=== PATIENT | female | born 1950 | race Caucasian/White ===

== ENCOUNTER 2018-06-26 16:01 | Emergency (ER) | payer MEDICARE, OTHER ==
[~2018-06-26] VITALS: Ht 160 cm; Wt 90.0 kg
[2018-06-26 16:28] LABS: BASO % 0.2 % (0.0-2.0); GRAN # 18.5 (1.4-6.5); GRAN % 90.5 % (42.2-75.2); HEMATOCRIT 43.3 % (37.0-47.0); HEMOGLOBIN 14.6 g/dl (12.5-16.0); LYMPH # 0.6 (1.2-3.4); LYMPH % 2.7 % (20.0-51.0); MEAN CELL VOLUME 92 fl (80.0-100.0); MEAN CORPUSCULAR HEMOGLOBIN 31 pg (27.0-31.0); MEAN CORPUSCULAR HGB CONC 34 g/dl (33.0-37.0); MEAN PLATELET VOLUME 9.6 fl (7.4-10.4); MONO # 1.2 (0.1-0.6); MONO % 5.9 % (1.7-9.3); PLATELET COUNT 257 K/mm3 (130-400); RED BLOOD COUNT 4.71 M/mm3 (4.10-5.30)
[2018-06-26 16:37] LABS: INR 1.3 (0.8-3.0); PROTHROMBIN TIME 14.5 SECONDS (9.7-12.8)
[2018-06-26 20:34] LABS: HEMATOCRIT 45.6 % (37.0-47.0); HEMOGLOBIN 15.2 g/dl (12.5-16.0); MEAN CELL VOLUME 92 fl (80.0-100.0); MEAN CORPUSCULAR HEMOGLOBIN 31 pg (27.0-31.0); MEAN CORPUSCULAR HGB CONC 33 g/dl (33.0-37.0); MEAN PLATELET VOLUME 9.5 fl (7.4-10.4); PLATELET COUNT 296 K/mm3 (130-400); RED BLOOD COUNT 4.96 M/mm3 (4.10-5.30); REDCELL DISTRIBUTION WIDTH-CV 13.2 % (11.5-14.5)
[2018-06-26 20:41] LABS: BILIRUBIN,TOTAL 0.6 mg/dL (0.0-1.0); CALCIUM 9.4 mg/dL (8.4-10.2); CREATININE, serum 0.82 mg/dL (0.52-1.25); POTASSIUM 3.1 mmol/L (3.4-5.0); TOTAL PROTEIN 8.9 gm/dL (6.4-8.2)
[2018-06-26 20:58] LABS: COLLECTION METHOD CATHETER
[2018-06-26 20:59] LABS: ANISOCYTOSIS 1+; BAND 9 % (0-10); LYMPHOCYTE 3 % (20.0-51.0); NEUTROPHILS 84 % (42.0-75.2); PLATELET ESTIMATE NORMAL (NORMAL)
[2018-06-26 21:06] LABS: PH 7 (5-8); SQUAMOUS EPITHELIAL None Seen /hpf; URINE APPEARANCE Hazy; URINE BACTERIA Rare /hpf; URINE BILIRUBIN Negative (NEGATIVE); URINE BLOOD 3+ (NEGATIVE); URINE COLOR Yellow; URINE GLUCOSE 3+ (NEGATIVE); URINE KETONE 1+ (NEGATIVE); URINE LEUKOCYTE ESTERASE Negative (NEGATIVE); URINE NITRATE Negative (NEGATIVE); URINE PROTEIN(semi-quant) 1+ (NEGATIVE); URINE RBC >50 /hpf; URINE UROBILINOGEN Negative (NEGATIVE)
[2018-06-26 21:12] LABS: ARTERIAL BLD GAS O2 SATURATION 96.1 % (92-100); ARTERIAL BLD GAS TCO2 CT 27.8; ARTERIAL BLOOD GAS BASE EXCESS 2.5 (-2-2); ARTERIAL BLOOD GAS HCO3 26.6 meq/L (22-26); ARTERIAL BLOOD GAS PCO2 39.2 mmHg (35-45); ARTERIAL BLOOD GAS PO2 79.4 mmHg (80-100); ARTERIAL BLOOD GAS pH 7.45 (7.35-7.45)
[2018-06-27] MEDS ORDERED: ROXICODONE 55 MG/TAB PO (07:10)
[2018-06-27] MEDS ORDERED: TAMBOCOR150 MG PO (07:10)
[2018-06-27] MEDS ORDERED: COUMADIN 77.5 MG/TAB PO (07:11)
[2018-06-27] MEDS ORDERED: SYNTHROID0.112 MG/T PO (07:11)
[2018-06-27] MEDS ORDERED: CYTOMEL 2525 MCG/TAB PO (07:12)
[2018-06-27] MEDS ORDERED: NEURONTIN300 MG/CAP PO (07:12)
[2018-06-27] MEDS ORDERED: MAXZIDE-25MG TA1 TAB PO (07:12)
[2018-06-27] MEDS ORDERED: LOFIBRA160 MG PO (07:12)
[2018-06-27] MEDS ORDERED: CYMBALTA 60MG60 MG PO (07:13)
[2018-06-27] MEDS ORDERED: TOPROL XL 25MG25 MG PO (07:13)
[2018-06-27] MEDS ORDERED: CRESTOR20 MG PO (07:13)
[2018-06-27 08:00] VITALS: BP 142/71; PULSE 72
[2018-06-27 08:26] VITALS: TEMP 98
== END 2018-06-27 08:50 | disposition short-term general hospital (02) ==
LOC: COL.ER 16:01
PROVIDERS: Family Medicine
DX: G97.1 Other reaction to spinal and lumbar puncture (principal); G89.29 Other chronic pain; M54.5 Low back pain; D72.829 Elevated white blood cell count, unspecified; Z79.01 Long term (current) use of anticoagulants
CPT/HCPCS: J0696; J1170; J2405; J3370; J7030; J7040; J7050; J7120

== ENCOUNTER 2019-10-04 16:05 | Inpatient (IN) | payer MEDICARE, OTHER ==
[~2019-10-04] VITALS: Ht 160 cm; Wt 90.8 kg
[~2019-10-04 16:05] MED LIST: COUMADIN 77.5 MG/TAB PO; CRESTOR20 MG PO; CYMBALTA 60MG60 MG PO; CYTOMEL 2525 MCG/TAB PO; LOFIBRA160 MG PO; MAXZIDE-25MG TA1 TAB PO; NEURONTIN300 MG/CAP PO; ROXICODONE 55 MG/TAB PO; SYNTHROID0.112 MG/T PO; TAMBOCOR150 MG PO; TOPROL XL 25MG25 MG PO
[2019-11-16] VITALS (15 sets, daily range): BP systolic 78–132; BP diastolic 34–52; PULSE 62–74; TEMP 97.4–98.1
--- NOTE | 2019-11-16 08:14 | NUR ---
Patient brought to room from admissions via wheelchair. Assessment completed. Consent reviewed and signed. 20 gauge IV started in left forearm times one stick by this nurse. Spouse in room with the patient.
[2019-11-16] MEDS ORDERED: ACIDOPHILIS (08:49)
[2019-11-16] MEDS ORDERED: LIORESAL 1010 MG/TAB PO (08:50)
[2019-11-16] MEDS ORDERED: KLONOPIN 0.5MG0.5 MG PO (08:51)
[2019-11-16] MEDS ORDERED: DULCOLAX STOOL100 MG PO (08:51)
[2019-11-16] MEDS ORDERED: FENTANYL 25 MCG TD (08:52)
[2019-11-16] MEDS ORDERED: ARIMIDEX1 MG PO (08:53)
[2019-11-16] MEDS ORDERED: FOLIC ACID 40400 MCG PO ×2 (08:54)
[2019-11-16] MEDS ORDERED: LASIX 20MG TABL20 MG PO (08:55)
[2019-11-16] MEDS ORDERED: LUTEIN20 M1 PO (08:56)
[2019-11-16] MEDS ORDERED: TOPROL XL 25MG25 MG PO (08:57)
[2019-11-16] MEDS ORDERED: PROTONIX 40MG T40 MG PO (08:58)
[2019-11-16] MEDS ORDERED: MICRO-K EXTENCA8 MEQ PO (08:59)
[2019-11-16] MEDS ORDERED: PROVENTIL0.09 MG/A1 IH (09:00)
[2019-11-16] MEDS ORDERED: EFFEXOR XR37.5 MG/CA PO (09:02)
[2019-11-16] MEDS ORDERED: MASON NATURAL2000 IU PO (09:03)
[2019-11-16] MEDS ORDERED: VITAMIN C500 MG PO (09:03)
--- NOTE | 2019-11-16 09:56 | NUR ---
ANURADHA met with the patient and her , Uriel ([id number]#[phone]), to discuss discharge plan. The patient lives in [place] with her . She reports independence with ADLs and has a walker, wheelchair, and electric wheelchair. The patient's PCP is Dr. Christopher Gandhi and she receives her medications at [facility] in [place]. She reports no difficulties obtaining her meds. The patient does not have advanced directives in EMR, but she reports that she does have them completed and that her is her DPOA-HC. The patient plans to return home with her and receive outpatient PT in [place]. No additional needs at this time.
[2019-11-16 10:01] LABS: PROTHROMBIN TIME 11.1 SECONDS (9.7-12.8)
--- NOTE | 2019-11-16 13:45 | NUR ---
Patient to room from PACU via bed. Denies pain at this time. Is able to move right leg and foot. Dressing to right knee CDI. Ice is to right knee. Spouse in room with the patient. Patient denies further needs at this time.
--- NOTE | 2019-11-16 15:30 | NUR ---
Sitting up in bed eating pudding. Denies pain. CMS intact to right lower extremity. Spouse in room with patient. Patient denies further needs.
--- NOTE | 2019-11-16 15:36 | NUR ---
Spoke with Dr. North regarding patient BP's low. Orders received.
--- NOTE | 2019-11-16 17:53 | NUR ---
Rating pain in right knee 4/10 and would like pain medication. Ultram administered as prescribed. Patient able to void. Denies further needs at this time.
--- NOTE | 2019-11-16 20:50 | NUR ---
Pt. sitting up in bed at this time. Pt. is A&OX3, assessment complete. IV to Lt. forearm patent, IV fluids infusing per orders. Dressing to rt. knee CDI. Pt. reports pain at a 7 on pain scale, will give pain meds per orders. Pt. denies further needs, call light within reach.
[2019-11-17] VITALS (7 sets, daily range): BP systolic 100–117; BP diastolic 31–85; PULSE 67–77; TEMP 97.1–98.4
--- NOTE | 2019-11-17 06:55 | NUR ---
Lying in bed with eyes closed and CPAP on. Patient opens eyes when name called out. Rating pain 4/10 in right knee. Dressing to right knee CDI. Patient denies needs at this time.
[2019-11-17 07:02] LABS: HEMATOCRIT 30.6 % (37.0-47.0)
[2019-11-17 07:21] LABS: INR 1.1 (0.8-3.0); PROTHROMBIN TIME 12.1 SECONDS (9.7-12.8)
--- NOTE | 2019-11-17 08:34 | NUR ---
Assisted patient into bathroom to void. Returns into room and sits in recliner. Gait slow but steady. Pain does increase some with ambulation. Dressing change was performed to right knee. Site well approximated, no redness/drainage/edema noted at site. Aquacell applied. Patient denies further needs.
--- NOTE | 2019-11-17 10:03 | NUR ---
Rating pain 7/10 in right knee and would like pain medication. Administered Roxicodone as prescribed. Patient remains sitting up in recliner. Denies further needs.
--- NOTE | 2019-11-17 11:54 | NUR ---
First visit from the eyeglass frames inspector. No needs right now.
--- NOTE | 2019-11-17 12:45 | NUR ---
Patient had been up ambulating in halls with PT and working in room with PT. -02/16, describes as a pulled muscle sensation. Administered [place] as prescribed per patient request. Patient lying in bed watching TV and talking with spouse. Denies further needs.
--- NOTE | 2019-11-17 14:52 | NUR ---
Rating pain 10/10 that is cramping down leg, has dull ache above knee. Patient requests pain medication. Administered Roxicodone as prescribed.
--- NOTE | 2019-11-17 16:45 | NUR ---
Continues to have pain in right knee 03/18. Administered [place] as prescribed. Patient's in room. Reassurance provided. Denies further needs.
--- NOTE | 2019-11-17 18:00 | NUR ---
Continues to rate pain 9/10 in right knee. Administer Tramadol as prescribed. Patient in bed. Has ice pack to knee. Spouse remains at bedside.
--- NOTE | 2019-11-17 20:00 | NUR ---
Report received. Assumed care for shift coordinator. A&Ox3-drowsy. Assessment complete. VS stable. Denies nausea/shortness of breath. Left FA INT flushes without difficulty. Aquacell to right knee-CDI. TEDs/SCDs bilat. Fresh ice pack applied to knee. Denies questions/concerns. Call light in reach. Will monitor.
--- NOTE | 2019-11-18 03:07 | NUR ---
Called with c/o pain to right knee-rating 10/10-described as constant throbbing. Oxycodone given per dr order. Fresh ice pack appied. SCDs/Cici chapa. Call light in reach. Will monitor.
[2019-11-18 04:00] VITALS: BP 108/53; PULSE 76; TEMP 97.9
--- NOTE | 2019-11-18 07:02 | NUR ---
REPORT FROM RANJANA BERRY.
[2019-11-18 07:06] LABS: HEMOGLOBIN 10.5 g/dl (12.5-16.0); INR 1.3 (0.8-3.0); PROTHROMBIN TIME 14.3 SECONDS (9.7-12.8)
[2019-11-18 07:10] LABS: HEMATOCRIT 32.7 % (37.0-47.0)
[2019-11-18 07:34] VITALS: BP 129/43; PULSE 73; TEMP 97.8
[2019-11-18 11:31] VITALS: BP 133/52; PULSE 73; TEMP 98.2
[2019-11-18] MEDS ORDERED: NORCO 325 MG-7.1 TAB PO (12:30)
[2019-11-18] MEDS ORDERED: ROXICODONE 55 MG/TAB PO (12:31)
[2019-11-18 17:56] VITALS: BP 108/46; PULSE 70; TEMP 98.4
[2019-11-18 19:58] VITALS: BP 116/56; PULSE 64; TEMP 98.4
--- NOTE | 2019-11-18 20:00 | NUR ---
Report recieved, assumed care for night shift manager. A&Ox3. Assessment complete. VS stable. Denies shortness of breath/nausea. C/O pain to right knee-rating 10/10 on pain scale-described as constant throbbing. Agate given per order. Fresh ice pack applied. Aquacell dressing CDI. TEDs/SCDs bilat. Plan of care discussed for this shift to include pain control/ambulation. Verbalizes understanding/denies concerns. Call light in reach. Will monitor.
[2019-11-19 00:10] VITALS: BP 112/46; PULSE 78; TEMP 98
--- NOTE | 2019-11-19 00:14 | NUR ---
Called with c/o pain to right knee-rating 8/10 on pain scale-described as constant ache/throbbing. Oxycodone per dr order. Ambulating much better this shift prior to last. Cici chapa. Refused SCDs. Fresh ice pack applied to right knee. Call light in reach. Will monitor.
[2019-11-19 04:12] VITALS: BP 116/48; PULSE 68; TEMP 97.8
[2019-11-19 07:38] VITALS: BP 106/59; PULSE 85; TEMP 98.2
[2019-11-19 07:45] LABS: INR 1.6 (0.8-3.0); PROTHROMBIN TIME 18.3 SECONDS (9.7-12.8)
--- NOTE | 2019-11-19 08:00 | NUR ---
PATIENT IS A&O. VSS. RATES PAIN IN RLE AT 4-5 ON PAIN SCALE. GAVE PRN OXYCODONE, TWO TABS WITH AM MEDS. RTK DRESSING IS CD&I WITH AQUACEL. TEDS TO BLE. SCD'S CURRENTLY OFF. POSITIVE PEDAL PULSES TO BLE. PATIENT EAT/DRINK/VOIDING SUFFICENT AMOUNTS. NO C/O N/V. LEFT FA IV TO INT. HEAD TO TOE ASSESSMENT WNL. PATIENT HOPING TO DISCHARGE HOME THIS AM. SEE DISCHARGE ORDERS.
--- NOTE | 2019-11-19 10:00 | NUR ---
PATIENT DISCHARGING HOME VIA WC TO PERSONAL VEHICLE WITH . GAVE DISCHARGE INSTRUCTIONS, PRESCRIPTIONS & F/U APT. ANSWERED ALL QUESTIONS/CONCERNS. DC'D LEFT FA IV. SENT PERSONAL BELONGINGS. PATIENT DISCHARGED.
== END 2019-11-19 10:00 | disposition home or self-care (01) | DRG 470 ==
LOC: JCC 11-16 08:14
PROVIDERS: Registered Nurse; ADMIT Orthopaedic Surgery
PROC: 0SRC069 Replacement of Right Knee Joint with Oxidized Zirconium on Polyethylene Synthetic Substitute, Cemented, Open Approach (ICD-10-PCS; principal; 2019-11-16 11:00)
DX: M17.11 Unilateral primary osteoarthritis, right knee (principal)
CPT/HCPCS: A9284; C1713; C1776; J0690; J1885; J2270; J2405; J2704; J7030; J7040; J7120